=== PATIENT | male | born 1950 | race Caucasian/White ===

== ENCOUNTER 2016-08-27 14:39 | Inpatient (IN) | payer OTHER ==
[~2016-08-27] VITALS: Ht 188 cm; Wt 76.5 kg
[~2016-08-27 14:39] MED LIST: ACTOS30 MG PO; CARAFATE1 GM PO; CO Q-10100 MG PO; DURAGESIC25 MCG TD; FENTANYL1 EAC4 TD; HYDROCODON-ACE1 EAC7 PO; JANUVIA100 MG PO; LIPITOR20 MG PO; LORTAB 7.5-500473 ML PO; METFORMIN HCL500 MG PO; MIRALAX17 GM PO; PRIMALEV PO; PROTONIX40 MG PO
[2016-08-27] MEDS ORDERED: FAMOTIDINE40 MG PO (16:30)
[2016-08-27] MEDS ORDERED: KRILL OIL 1,501 EACH PO (16:31)
[2016-08-27] MEDS ORDERED: NEXIUM40 MG PO (16:31)
[2016-08-27] MEDS ORDERED: KADIAN100 MG PO (16:32)
[2016-08-27] MEDS ORDERED: CINNAMON500 MG PO (16:32)
[2016-08-27] MEDS ORDERED: MORPHINE SULFAT15 MG PO (16:33)
[2016-08-27] MEDS ORDERED: ELAVIL50 MG PO (16:33)
[2016-08-27 17:17] LABS: BASOPHIL COUNT 0.1 K/uL (0-0.1); EOSINOPHIL (%) 0.6 % (0-5); EOSINOPHIL COUNT 0.1 K/uL (0-0.3); HEMATOCRIT 45.6 % (38.0-50.0); IMMATURE GRANULOCYTE (%) 0.5 % (0.0-0.7); IMMATURE GRANULOCYTE COUNT 0.1 K/uL; INSTRUMENT ABS NEUTROPHIL CT 8.8 K/uL; LYMPHOCYTE COUNT 1.8 K/uL (1.0-2.8); MCH 29.1 PG (29.0-34.0); MCHC 33.3 G/DL (30.0-36.0); MCV 87.2 FL (86-99); MEAN PLAT.VOLUME 8.6 uM^3 (9.0-12.4); MONOCYTE (%) 7.1 % (3-12); MONOCYTE COUNT 0.8 K/uL (0-0.8); NEUTROPHIL (%) 75.7 % (45-76); NEUTROPHIL COUNT 8.8 K/uL (1.8-6.4); PLATELET COUNT 239 K/uL (156-360); RBC DIS.WIDTH-SD 45.5 % (39-53); RED BLOOD COUNT 5.23 M/uL (4.00-5.50); WHITE BLOOD COUNT 11.6 K/uL (4.1-10.2)
[2016-08-27 17:34] LABS: CHLORIDE 97 mEq/L (99-109); POTASSIUM 3.7 mEq/L (3.7-5.4); SODIUM 131 mEq/L (136-147)
[2016-08-27 17:36] LABS: GLUCOSE 106 mg/dL (70-99)
[2016-08-27 17:37] LABS: ANION GAP 9 MEQ/L (2-14)
[2016-08-27 17:38] LABS: TOTAL BILIRUBIN 0.9 mg/dL (0.0-1.0)
[2016-08-27 17:39] LABS: ALKALINE PHOSPHATASE 102 IU/L (3-129)
[2016-08-27 17:40] LABS: GFR ESTIMATE (CALCULATED) > 59 mL/min/
[2016-08-27 17:41] LABS: UREA NITROGEN (BUN) 13 mg/dL (9-23)
[2016-08-27 17:43] LABS: TROP-I INTERPRETATION NEGATIVE; TROPONIN-I < 0.01 ng/mL (0.0-0.30)
[2016-08-27 17:56] LABS: ADD MIUA? YES; BILIRUBIN NEGATIVE; BLOOD NEGATIVE; COLOR AMBER ((YELLOW)); GLUCOSE (STRIP) NEGATIVE; KETONES 5; LEUKOCYTES NEGATIVE; NITRITE NEGATIVE; PROTEIN (STRIP) 30; SPECIFIC GRAVITY 1.017 (1.000-1.030); UROBILINOGEN 0.2 MG/DL (0.2-1.0)
[2016-08-27 18:05] LABS: BACTERIA RARE /HPF; EPITHELIAL CELLS RARE /HPF; HYALINE CASTS 0-5 /LPF; MUCUS 1+ /LPF; RED BLOOD CELLS 0-5 /HPF (0-5); WHITE BLOOD CELLS 0-5 /HPF (0-5)
[2016-08-27 20:21] LABS: INTER. NORMALIZED RATIO 1.1; PROTHROMBIN TIME 11.7 (9.2-11.2); PTT 31.5 (25-32)
[2016-08-28] VITALS (7 sets, daily range): BP systolic 86–116; BP diastolic 54–68
[2016-08-28 01:40] LABS: TROP-I INTERPRETATION NEGATIVE; TROPONIN-I < 0.01 ng/mL (0.0-0.30)
[2016-08-28 03:38] LABS: HEMATOCRIT 41.9 % (38.0-50.0); MCH 29.1 PG (29.0-34.0); MCHC 32.9 G/DL (30.0-36.0); MCV 88.2 FL (86-99); MEAN PLAT.VOLUME 8.8 uM^3 (9.0-12.4); PLATELET COUNT 224 K/uL (156-360); RBC DIS.WIDTH-SD 45.4 % (39-53); RED BLOOD COUNT 4.75 M/uL (4.00-5.50); WHITE BLOOD COUNT 10.6 K/uL (4.1-10.2)
[2016-08-28 03:56] LABS: CHLORIDE 100 mEq/L (99-109); POTASSIUM 4.4 mEq/L (3.7-5.4); SODIUM 135 mEq/L (136-147)
[2016-08-28 03:58] LABS: GLUCOSE 149 mg/dL (70-99)
[2016-08-28 03:59] LABS: ANION GAP 8 MEQ/L (2-14)
[2016-08-28 04:02] LABS: GFR ESTIMATE (CALCULATED) > 59 mL/min/
[2016-08-28 04:03] LABS: UREA NITROGEN (BUN) 14 mg/dL (9-23)
[2016-08-28 05:58] LABS: POINT-OF-CARE METER ID UU13113725
[2016-08-28 08:54] LABS: PTT 51.6 (25-32)
[2016-08-28 09:15] LABS: TROP-I INTERPRETATION NEGATIVE; TROPONIN-I < 0.01 ng/mL (0.0-0.30)
[2016-08-28 09:29] LABS: INTER. NORMALIZED RATIO 1.1; PROTHROMBIN TIME 11.7 (9.2-11.2)
[2016-08-28 17:04] LABS: TROP-I INTERPRETATION NEGATIVE; TROPONIN-I < 0.01 ng/mL (0.0-0.30)
[2016-08-29 03:03] VITALS: BP 93/63
[2016-08-29 06:18] LABS: HEMATOCRIT 37.7 % (38.0-50.0); MCH 29.8 PG (29.0-34.0); MCHC 33.7 G/DL (30.0-36.0); MCV 88.5 FL (86-99); MEAN PLAT.VOLUME 8.7 uM^3 (9.0-12.4); PLATELET COUNT 217 K/uL (156-360); RBC DIS.WIDTH-CV 13.9 % (11.8-14.6); RBC DIS.WIDTH-SD 44.9 % (39-53); RED BLOOD COUNT 4.26 M/uL (4.00-5.50); WHITE BLOOD COUNT 7.8 K/uL (4.1-10.2)
[2016-08-29 06:55] VITALS: BP 92/61
[2016-08-29 10:10] VITALS: BP 96/64
[2016-08-29 15:10] VITALS: BP 98/66
[2016-08-29] MEDS ORDERED: AMOX TR-K CLV1 EAC4 PO (19:24)
[2016-08-29] MEDS ORDERED: ELIQUIS5 MG PO ×2 (19:27→19:30)
[2016-08-29] MEDS ORDERED: JANUVIA100 MG PO (19:33)
[2016-08-29 19:35] VITALS: BP 101/60
[2016-09-02 20:20] LABS: ANTITHROMBIN III ACTIVITY+ 67 (80-120); DRVVT Mixing Study Interp Not Indicated (()); PROTEIN C FUNCTIONAL ACTIVITY+ 88 % (70-180); PTT-LA 39 sec (<=40); Protein S, Free 103 % normal (57-171); Thrombosis Consult Level Limited (()); dRVVT Screen 43 sec (<=45)
== END 2016-08-29 21:21 | disposition home or self-care (01) | DRG 176 ==
LOC: EME 14:39 → EDOF 21:01 → 5EAST 21:01
PROVIDERS: Emergency Medicine; Family Medicine; Internal Medicine Pulmonary Disease
DX: I26.99 Other pulmonary embolism without acute cor pulmonale (principal); J44.0 Chronic obstructive pulmonary disease with (acute) lower respiratory infection; J20.9 Acute bronchitis, unspecified; E87.1 Hypo-osmolality and hyponatremia; E87.70 Fluid overload, unspecified; K22.70 Barrett's esophagus without dysplasia; R09.02 Hypoxemia; K21.9 Gastro-esophageal reflux disease without esophagitis; K59.00 Constipation, unspecified; E11.9 Type 2 diabetes mellitus without complications; E78.5 Hyperlipidemia, unspecified; F17.200 Nicotine dependence, unspecified, uncomplicated; F41.9 Anxiety disorder, unspecified; G89.4 Chronic pain syndrome; M19.90 Unspecified osteoarthritis, unspecified site; Z86.718 Personal history of other venous thrombosis and embolism; Z79.01 Long term (current) use of anticoagulants; Z79.84 Long term (current) use of oral hypoglycemic drugs; Z85.01 Personal history of malignant neoplasm of esophagus; Z87.442 Personal history of urinary calculi; R59.1 Generalized enlarged lymph nodes; K80.20 Calculus of gallbladder without cholecystitis without obstruction
CPT/HCPCS: 71020; 71275; 74178; 80048; 80053; 81003; 81240 90; 82948; 83090 90; 83605; 83880; 84484; 85025; 85027; 85240 90; 85300 90; 85303 90; 85305 90; 85306 90; 85610; 85613 90; 85730; 85730 90; 86146 90; 86147 90; 87040; 93005; 93970; 94799; 99281; 99285; J0696; J2270; J2405; J7050

== ENCOUNTER → 2016-09-01 | Outpatient (CLI) | payer OTHER ==
[~2016-09-01] MED LIST changes: +AMOX TR-K CLV1 EAC4 PO; +CINNAMON500 MG PO; +ELAVIL50 MG PO; +ELIQUIS5 MG PO; +FAMOTIDINE40 MG PO; +KADIAN100 MG PO; +KRILL OIL 1,501 EACH PO; +MORPHINE SULFAT15 MG PO; +NEXIUM40 MG PO
== END | disposition home or self-care (01) ==
LOC: NUC 08-31 07:00
DX: R10.33 Periumbilical pain (principal)
CPT/HCPCS: 78227; A9537; J2805